=== PATIENT | male | born 1970 | race Caucasian/White ===

== ENCOUNTER 2017-02-18 17:04 | Emergency (ER) | payer MEDICAID ==
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
--- NOTE | 2017-02-18 17:18 | CPEKG ---
Heart Rate: 85 RR Interval: 706 P-R Interval: 152 QRSD Interval: 96 QT Interval: 356 QTC Interval: 424 P [place]: 15 QRS [place]: -38 T Wave [place]: 67 EKG Severity - OTHERWISE NORMAL ECG - EKG Impression: SINUS RHYTHM EKG Impression: LEFT AXIS DEVIATION Electronically Signed By: Priyank Kelly 18-Feb-2017 20:34:08
[2017-02-18] MEDS ORDERED: NS 1,000 ML IV ONE (17:30)
[2017-02-18 17:50] LABS: ABSOLUTE IMMATURE GRANULOCYTES 0.13 10^3/uL (0.00-0.10); ADD DIFF? NO; ADD MORPH? NO; ADD SCAN? NO; ATYPICAL LYMPHOCYTE FLAG 10 (0-99); FRAGMENT RBC FLAG 0 (0-99); HEMATOCRIT 42.7 % (40.0-51.0); HEMOGLOBIN 14.6 g/dL (13.7-17.5); LEFT SHIFT FLG 10 (0-99); LIPEMIA HEMOLYSIS FLAG 90 (0-99); MEAN CELL HEMOGLOBIN 29.6 pg (27.9-34.1); MEAN CELL HEMOGLOBIN CONCENTR. 34.2 g/dL (32.4-36.7); MEAN CELL VOLUME 86.6 fL (81.5-99.8); MEAN PLATELET VOLUME 9.6 fL (8.7-11.7); PLATELET CLUMPS FLAG 0 (0-99); PLATELET COUNT 266 10^3/uL (150-400); RED BLOOD CELL COUNT 4.93 10^6/uL (4.40-6.38); RED CELL DISTRIBUTION WIDTH 14.1 % (11.5-15.2)
[2017-02-18 18:08] LABS: ANION GAP 12 mEq/L (8-16); CALCIUM 9.6 mg/dL (8.5-10.4); CARBON DIOXIDE 19 mEq/l (22-31); CHLORIDE 111 mEq/L (97-110); CREATININE 0.9 mg/dL (0.7-1.3); GLOMERULAR FILTRATION RATE > 60; GLUCOSE 91 mg/dL (70-100); POTASSIUM 4.2 mEq/L (3.5-5.2); SODIUM 142 mEq/L (134-144)
[2017-02-18 18:21] LABS: TROPONIN I < 0.012 ng/mL (0-0.034)
[2017-02-18 18:31] LABS: ALANINE AMINOTRANSFERASE 60 IU/L (21-72); ALBUMIN 4.1 g/dL (3.5-5.0); ALKALINE PHOSPHATASE 60 IU/L (38-126); ASPARTATE AMINOTRANSFERASE 37 IU/L (17-59); BILIRUBIN,TOTAL 0.6 mg/dL (0.1-1.4); BILIRUBIN-CONJUGATED 0.3 mg/dL (0.0-0.5); BILIRUBIN-UNCONJUGATED 0.3 mg/dL (0.0-1.1); TOTAL PROTEIN 6.8 g/dL (6.3-8.2)
[2017-02-18] MEDS ORDERED: LIDOCAINE 5% 1 EA PATCH TD ONE (18:55)
[2017-02-18 20:31] VITALS: BP 118/74; PULSE 80; RESP 14; TEMP 98.4; O2SAT 96
[2017-02-18] MEDS ORDERED: PATCH REMOVAL 1 EA PATCH TD SCH (21:00)
[2017-02-19] MEDS ORDERED: LIDOCAINE 5% 1 EA PATCH TD SCH (09:00)
== END 2017-02-18 20:29 | disposition home or self-care (01) ==
DX: R07.9 Chest pain, unspecified (principal); F17.200 Nicotine dependence, unspecified, uncomplicated; E86.9 Volume depletion, unspecified

== ENCOUNTER 2017-06-18 19:27 | Observation (INO) | payer MEDICAID ==
[2017-06-18] MEDS ORDERED: NS 500 ML IV ONE (20:00)
--- NOTE | 2017-06-18 20:00 | EDPHY ---
H & P Time Seen by Provider: 06/18/17 19:50 HPI/ROS: CHIEF COMPLAINT: Abdominal pain HISTORY OF PRESENT ILLNESS: Patient is a 46-year-old male who presents emergency department with multiple complaints. He starts by telling me he is unable to get into the homeless custodial. He states his getting extremely cold outside. Tells me that he has stage I renal failure in bed lung disease. He has mild shortness of breath and cough. No fevers or chills. Mild diffuse abdominal discomfort and cramping. No nausea vomiting. No diarrhea. REVIEW OF SYSTEMS: My complete review of systems is negative except as mentioned in the HPI. Past Medical/Surgical History: Includes renal disease, hypertension, asthma, chronic pain Smoking Status: Current some day smoker Physical Exam: Vitals noted GENERAL: Well-appearing, in no acute distress, alert. HEENT: Eyes normal to inspection, normal pharynx, no signs of dehydration. NECK: No thyromegaly, no lymphadenopathy, supple. RESPIRATORY: Clear to auscultation bilaterally, no rales, rhonchi or wheezing. Normal CVS: Regular rate and rhythm, no rubs, murmurs, or gallops. ABDOMEN: Soft, nontender, nondistended, no organomegaly. Benign BACK: Normal to inspection, no CVA tenderness. SKIN: Normal color, no rash, warm, dry. No pallor. EXTREMITIES: No pedal edema, no calf tenderness, no Homans sign or cords, no joint swelling. NEURO/PSYCH: Alert and oriented x3, normal mood and affect, normal motor sensory exam. Constitutional: Initial Vital Signs Heart Rate 81 06/18/17 19:36 Respiratory Rate 18 06/18/17 19:36 Blood Pressure 120/93 H 06/18/17 19:36 O2 Sat (%) 94 06/18/17 19:36 O2 Delivery Mode Room Air Allergies/Adverse Reactions: acetaminophen [From Vicodin] Allergy (Verified 02/18/17 17:32) hydrocodone [From Vicodin] Allergy (Verified 02/18/17 17:32) Home Medications: Medication Instructions Recorded Albuterol 06/18/17 Artane 06/18/17 Buprenorphine HCl/Naloxone HCl 2 each SL DAILY 06/18/17 [Suboxone 8 mg-2 mg Sl Film] Gabapentin 800 mg 06/18/17 Lisinopril/Hctz 20/12.5MG 06/18/17 [Zestoretic/Prinzide 20/12.5MG (*)] OLANZapine DISINTEGR 06/18/17 Medical Decision Making - Diagnostics Imaging Results: Imaging Impressions Chest X-Ray 06/18/17 20:00 Impression: Early right lower lobe pneumonia.. ED Course/Re-evaluation: In the emergency department I met the patient on arrival. Patient seen primarily concerned with the change in weather in that he did not have a place to stay this evening. Laboratory studies and chest x-ray were ordered. Patient's CBC and chemistry panel unremarkable. Chest x-ray: Right lower lobe infiltrate. Please refer the dictated report. I discussed the results with the patient. I answered all his questions. The hospital service was paged. Patient will be admitted for further care. Patient was given Levaquin 750 mg IV and cultures were ordered. Differential Diagnosis: My differential includes but is not limited to small-bowel obstruction, perforation, cholecystitis, pancreatitis, appendicitis, electrolyte abnormality , sugar abnormality, asthma, malingering - Data Points Laboratory Results: Laboratory Results 06/18/17 20:14 06/18/17 20:14 06/18/17 06/18/17 20:14 20:14 WBC 10.02 10^3/uL H 10^3/uL (3.80-9.50) RBC 4.58 10^6/uL 10^6/uL (4.40-6.38) Hgb 14.0 g/dL g/dL (13.7-17.5) Hct 41.0 % % (40.0-51.0) MCV 89.5 fL fL (81.5-99.8) MCH 30.6 pg pg (27.9-34.1) MCHC 34.1 g/dL g/dL (32.4-36.7) RDW 14.2 % % (11.5-15.2) Plt Count 206 10^3/uL 10^3/uL (150-400) MPV 9.6 fL fL (8.7-11.7) Neut % (Auto) 60.3 % % (39.3-74.2) Lymph % (Auto) 26.5 % % (15.0-45.0) [place] % (Auto) 7.7 % % (4.5-13.0) Eos % (Auto) 3.6 % % (0.6-7.6) Baso % (Auto) 0.5 % % (0.3-1.7) Nucleat RBC Rel Count 0.0 % % (0.0-0.2) Absolute Neuts (auto) 6.04 10^3/uL 10^3/uL (1.70-6.50) Absolute Lymphs (auto) 2.66 10^3/uL 10^3/uL (1.00-3.00) Absolute Monos (auto) 0.77 10^3/uL 10^3/uL (0.30-0.80) Absolute Eos (auto) 0.36 10^3/uL 10^3/uL (0.03-0.40) Absolute Basos (auto) 0.05 10^3/uL 10^3/uL (0.02-0.10) Absolute Nucleated RBC 0.00 10^3/uL 10^3/uL (0-0.01) Immature Gran % 1.4 % H % (0.0-1.1) Immature Gran # 0.14 10^3/uL H 10^3/uL (0.00-0.10) Sodium 137 mEq/L mEq/L (134-144) Potassium 4.5 mEq/L mEq/L (3.5-5.2) Chloride 102 mEq/L mEq/L (97-110) Carbon Dioxide 24 mEq/l mEq/l (22-31) Anion Gap 11 mEq/L mEq/L (8-16) BUN 17 mg/dL mg/dL (7-23) Creatinine 0.7 mg/dL mg/dL (0.7-1.3) Estimated GFR > 60 Glucose 72 mg/dL mg/dL (70-100) Calcium 9.6 mg/dL mg/dL (8.5-10.4) Total Bilirubin 0.5 mg/dL mg/dL (0.1-1.4) Conjugated Bilirubin 0.2 mg/dL mg/dL (0.0-0.5) Unconjugated Bilirubin 0.3 mg/dL mg/dL (0.0-1.1) AST 89 IU/L H IU/L (17-59) ALT 169 IU/L H IU/L (21-72) Alkaline Phosphatase 100 IU/L IU/L (38-126) Total Protein 6.3 g/dL g/dL (6.3-8.2) Albumin 3.3 g/dL L g/dL (3.5-5.0) Lipase 26 IU/L IU/L (23-300) Medications Given: Discontinued Medications Sodium Chloride (Ns) 500 mls @ 0 mls/hr IV EDNOW ONE; Wide Open PRN Reason: Protocol Stop: 06/18/17 20:01 Last Admin: 06/18/17 20:29 Dose: 500 mls Departure - Departure Disposition: [facility] Inpatient Acute Clinical Impression: Shortness of breath Abdominal pain Qualifiers: Abdominal location: generalized Qualified Code(s): R10.84 - Generalized abdominal pain Condition: Good Instructions: Acute Abdominal Pain (ED) Referrals: [facility],. [Clinic] - As per Instructions
[2017-06-18 20:26] LABS: % IMMATURE GRANULYOCYTES 1.4 % (0.0-1.1); ABSOLUTE IMMATURE GRANULOCYTES 0.14 10^3/uL (0.00-0.10); ADD DIFF? NO; ADD MORPH? NO; ADD SCAN? NO; ATYPICAL LYMPHOCYTE FLAG 20 (0-99); FRAGMENT RBC FLAG 0 (0-99); LEFT SHIFT FLG 10 (0-99); LIPEMIA HEMOLYSIS FLAG 90 (0-99); MEAN CELL HEMOGLOBIN 30.6 pg (27.9-34.1); MEAN CELL HEMOGLOBIN CONCENTR. 34.1 g/dL (32.4-36.7); MEAN CELL VOLUME 89.5 fL (81.5-99.8); MEAN PLATELET VOLUME 9.6 fL (8.7-11.7); PLATELET CLUMPS FLAG 30 (0-99); PLATELET COUNT 206 10^3/uL (150-400); RED BLOOD CELL COUNT 4.58 10^6/uL (4.40-6.38); RED CELL DISTRIBUTION WIDTH 14.2 % (11.5-15.2)
[2017-06-18 20:39] LABS: ALANINE AMINOTRANSFERASE 169 IU/L (21-72); ALBUMIN 3.3 g/dL (3.5-5.0); ALKALINE PHOSPHATASE 100 IU/L (38-126); ANION GAP 11 mEq/L (8-16); ASPARTATE AMINOTRANSFERASE 89 IU/L (17-59); BILIRUBIN,TOTAL 0.5 mg/dL (0.1-1.4); BILIRUBIN-CONJUGATED 0.2 mg/dL (0.0-0.5); BILIRUBIN-UNCONJUGATED 0.3 mg/dL (0.0-1.1); CALCIUM 9.6 mg/dL (8.5-10.4); CARBON DIOXIDE 24 mEq/l (22-31); CHLORIDE 102 mEq/L (97-110); CREATININE 0.7 mg/dL (0.7-1.3); GLOMERULAR FILTRATION RATE > 60; GLUCOSE 72 mg/dL (70-100); POTASSIUM 4.5 mEq/L (3.5-5.2); SODIUM 137 mEq/L (134-144); TOTAL PROTEIN 6.3 g/dL (6.3-8.2)
[2017-06-18] MEDS ORDERED: ONDANSETRON 4 MG/2 ML VIAL IVP PRN (21:14)
[2017-06-18] MEDS ORDERED: ACETAMINOPHEN 325 MG TAB PO PRN (21:14)
[2017-06-18] MEDS ORDERED: ONDANSETRON DISINTEGRATING 4 MG TAB PO PRN (21:14)
[2017-06-18] MEDS ORDERED: ALBUTEROL 3 ML DEYVIAL IH PRN (21:14)
[2017-06-18] MEDS ORDERED: NS 1,000 ML IV SCH (21:15)
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
[2017-06-18] MEDS: NICOTINE 21 MG/24 HR PATCH TD SCH (22:42)
[2017-06-19] MEDS ORDERED: ALBUTEROL 200 PUFFS/18 GM MDI IH SCH
[2017-06-19 05:03] LABS: % IMMATURE GRANULYOCYTES 1.5 % (0.0-1.1); ABSOLUTE IMMATURE GRANULOCYTES 0.13 10^3/uL (0.00-0.10); ADD DIFF? NO; ADD MORPH? NO; ADD SCAN? NO; ATYPICAL LYMPHOCYTE FLAG 20 (0-99); FRAGMENT RBC FLAG 0 (0-99); HEMATOCRIT 39.1 % (40.0-51.0); HEMOGLOBIN 13.3 g/dL (13.7-17.5); LEFT SHIFT FLG 10 (0-99); LIPEMIA HEMOLYSIS FLAG 90 (0-99); MEAN CELL HEMOGLOBIN 30.1 pg (27.9-34.1); MEAN CELL VOLUME 88.5 fL (81.5-99.8); PLATELET CLUMPS FLAG 0 (0-99); PLATELET COUNT 256 10^3/uL (150-400); RED BLOOD CELL COUNT 4.42 10^6/uL (4.40-6.38); RED CELL DISTRIBUTION WIDTH 14.1 % (11.5-15.2)
[2017-06-19 05:32] LABS: ANION GAP 8 mEq/L (8-16); CALCIUM 8.9 mg/dL (8.5-10.4); CARBON DIOXIDE 25 mEq/l (22-31); CHLORIDE 107 mEq/L (97-110); CREATININE 0.8 mg/dL (0.7-1.3); GLOMERULAR FILTRATION RATE > 60; GLUCOSE 88 mg/dL (70-100); MAGNESIUM 1.7 mg/dL (1.6-2.3); SODIUM 140 mEq/L (134-144)
[2017-06-19] MEDS ORDERED: ALBUTEROL 60 PUFFS/8 GM MDI IH PRN (08:02)
[2017-06-19] MEDS ORDERED: ALBUTEROL 200 PUFFS/18 GM MDI IH PRN (08:16)
[2017-06-19] MEDS: TRIHEXYPHENIDYL HCL 5 MG TAB PO SCH ×2 (08:29→15:34)
[2017-06-19] MEDS ORDERED: GABAPENTIN 400 MG CAP PO SCH (09:00)
[2017-06-19] MEDS ORDERED: LISINOPRIL/HCTZ 20/12.5MG 1 EA TAB PO SCH (09:00)
[2017-06-19] MEDS ORDERED: GABAPENTIN 800 MG PO SCH (09:00)
[2017-06-19] MEDS: NICOTINE 21 MG/24 HR PATCH TD SCH (09:25)
[2017-06-19 11:07] VITALS: RESP 20
--- NOTE | 2017-06-19 14:38 | HOSPPROG ---
Hospitalist Progress Note Assessment/Plan: Kwadwo is a 46 y/o male who presented to the ER with shortness of breath. #RLL Community acquired pneumonia -will cont Levaquin x 3 more days #Leukocytosis #Tobacco abuse disorder #Hx of HTN, BP adequate while here #Transaminitis, slight #Homelessness; suspect that is why he is here/ had no place to stay Subjective: Kwadwo is asking for clothes, shoes, and for me to fill his scripts. Objective: Vital Signs Temp Pulse Resp BP Pulse Ox 36.5 C 62 20 128/69 H 97 06/19/17 11:05 06/19/17 11:05 06/19/17 11:05 06/19/17 11:05 06/19/17 11:05 Laboratory Results 06/19/17 04:50 06/19/17 04:50 06/18/17 06/19/17 06/20/17 05:59 05:59 05:59 Intake Total 500 550 Output Total 500 625 Balance 0 -75 - Physical Exam Constitutional: not in pain, unkempt Eyes: PERRL Ears, Nose, Mouth, Throat: hearing normal Cardiovascular: regular rate and rhythym Respiratory: no respiratory distress Gastrointestinal: normoactive bowel sounds Skin: warm Musculoskeletal: full muscle strength Neurologic: AAOx3 Psychiatric: interacting appropriately, other (impulsive) ICD10 Worksheet Patient Problems: Problems Problem Status Onset Abdominal pain Acute Shortness of breath Acute
[2017-06-19 15:30] VITALS: BP 139/77; PULSE 85; TEMP 97.6; O2SAT 95
--- NOTE | 2017-06-19 16:54 | ASMTCMCOM ---
CM Note CM Note Notes: Pt. is a 46-year-old man admitted for PNA. Pt. is reportedly homeless. Hx. HTN, smoking, THC use. Per Pt, no recent ETOH use. Today CM met w/ Pt. in room. Pt. plans to be picked up by his cousin Eileen who will take him to her area on the [place] tomorrow. CM called Eileen to check-in per Pt's request. Eileen confirmed plans. CM let her know that CM has reserved the [facility] bed for Pt. and she should arrange now where to meet him tomorrow while he has a phone in the room. Eileen appeared to take down the number for Pt's room and med surg floor. CM provided Pt. w/ clothing from [facility] clothing closet to include a tshirt, long sleeve thick courderoy shirt, jeans, and a hat. Pt. has his own coat. Provided two local bus passes. CM MAP'ed meds at hospitalist suggestion to make sure he had them on the weekend. Pt. states he has no money. CM not making [facility] appt due to Pt. leaving town tomorrow. Pt. agrees. Pt. grateful for all the assistance. Plan: Pt. to d/c this evening to the [facility] bed. Date Signed: 06/19/2017 04:53 PM Electronically Signed By:Deanna Krueger LCSW
--- NOTE | 2017-06-19 17:13 | GDS ---
[f rep st] DISCHARGE SUMMARY DISCHARGE DIAGNOSES: 1. Right lower lobe pneumonia. 2. Leukocytosis. 3. Tobacco abuse. 4. History of hypertension. 5. Transaminitis. 6. Homelessness. HISTORY OF PRESENT ILLNESS: Briefly, the patient is a 46-year-old homeless gentleman. He says he us wynne resides down in the [facility]. He presented to the emergency room with shortness of breath a nd was noted to have a slight leukocytosis. His chest x-ray showed the beginning of a right lower lo be pneumonia. His procalcitonin level is 0.08, which means he likely does not have any type of bacte rial infection. He improved significantly with starting Levaquin. We will have him on this for a to ct of 5 days. HOSPITAL COURSE: 1. Right lower lobe community pneumonia. Will continue Levaquin. Blood cultures are pending. 2. Leukocytosis, resolved. 3. Tobacco abuse. Applied nicotine patch. 4. Hypertension. Blood pressure stable. 5. Transaminitis. Further follow up with [facility]. 6. Homelessness. I suspect that is one of the reasons why he came to the hospital. Case Management is working on getting him a place at the [facility]. PENDING LABS: Blood cultures pending. DISCHARGE CONDITION: Stable. Blood pressure is 139/77, heart rate is 85, respiratory rate is 20, O2 sat on room air 95%, temperature 36.4 Celsius. MEDICATIONS AT DISCHARGE: Please see the EMR. DISCHARGE INSTRUCTIONS: Further followup with [facility]. /[id number]/MODL
--- NOTE | 2017-06-19 17:27 | ASDISCHSUM ---
Discharge Information Plan Status:Homeless/Fdc Medically Cleared to Leave: Discharge Date:06/19/2017 05:12 PM CM D/C Disposition: ADT D/C Disposition:Home, Routine, Self-Care Projected Discharge Date:06/19/2017 05:12 PM Transportation at D/C:Bus Ticket Discharge Delay Reason: Follow-Up Date:06/19/2017 05:12 PM Discharge Slot: Final Diagnosis: Placement Information Patient Contact Information Contact Name:SARI Relationship: Address:[address] Work Phone: City:[place] Alternate Phone: State/Zip Code:[place] [address] Email: Financial Information Financial Class: Primary Plan 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 is a 46-year-old man admitted for PNA. Pt. is reportedly homeless. Hx. HTN, smoking, THC use. Per Pt, no recent ETOH use. Today AUDI met w/ Pt. in room. Pt. plans to be picked up by his cousin Eileen who will take him to her area on the [facility] tomorrow. called Eileen to check-in per Pt's request. Eileen confirmed plans. AUDI let her know that AUDI has reserved the [facility] bed for Pt. and she should arrange now where to meet him tomorrow while he has a phone in the room. Eileen appeared to take down the number for Pt's room and med surg floor. CM provided Pt. w/ clothing from [facility] clothing closet to include a tshirt, long sleeve thick courderoy shirt, jeans, and a hat. Pt. has his own coat. Provided two local bus passes. CM MAP'ed meds at hospitalist suggestion to make sure he had them on the weekend. Pt. states he has no money. CM not making [facility] appt due to Pt. leaving town tomorrow. Pt. agrees. Pt. grateful for all the assistance. Plan: Pt. to d/c this evening to the [facility] bed. Date Signed: 06/19/2017 04:53 PM Electronically Signed By:Deanna Krueger LCSW Intervention Information
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
[2017-06-19] MEDS ORDERED: NON-FORMULARY NEW DRUG (Simvastatin [Simvastatin] 10 MG) PO SCH (21:00)
[2017-06-19] MEDS ORDERED: OLANZapine 10 MG TAB PO SCH (21:00)
[2017-06-19] MEDS ORDERED: PRAVASTATIN SODIUM 20 MG TAB PO SCH (21:00)
== END 2017-06-19 17:12 | disposition home or self-care (01) ==
LOC: F3E 22:09
PROVIDERS: ADMIT Family Medicine; ATTEND Internal Medicine
DX: J18.0 Bronchopneumonia, unspecified organism (principal); R74.0 Nonspecific elevation of levels of transaminase and lactic acid dehydrogenase [LDH]; F17.210 Nicotine dependence, cigarettes, uncomplicated; I10 Essential (primary) hypertension; Z59.0 Homelessness
CPT/HCPCS: 71020; 96360; 99285; G0378; J1956